=== PATIENT | male | born 1975 | race Caucasian/White ===

== ENCOUNTER 2019-09-23 00:39 | Emergency (ER) | payer BC, OTHER ==
[~2019-09-23] VITALS: Ht 190.5 cm; Wt 96.6 kg
[2019-09-23 00:58] VITALS: BP 141/86
[2019-09-23] MEDS ORDERED: CEPH-264 PO (01:19)
[2019-09-23] MEDS ORDERED: SULF1TAB24 PO (01:19)
--- NOTE | 2019-09-23 01:19 | PHYS DOC ---
Past Medical History Past Medical History: No Pertinent History Past Surgical History: Other Additional Past Surgical Histo: LEFT SHOULDER Alcohol Use: None Drug Use: None Adult General Chief Complaint Chief Complaint: INSECT BITE HPI HPI Patient is a 44 year old L presented to ER today for evaluation of a tender wound on left anterior thigh for two days. Patient felt like he was bitten by some type of insect 2 days ago. He noted a swollen lesion, he tried to squeezed it out and now it became swollen and tender. Patient denied any fever. All other ROS is negative unless otherwise noted in HPI Review of Systems Review of Systems See above Current Medications Current Medications Current Medications Medications (Trade) Dose Ordered Sig/Param Start Time Stop Time Status Last Admin Dose Admin Cephalexin HCl (Keflex) 1,000 mg 1X ONCE 09/23/19 01:30 09/23/19 01:31 Trimethoprim/ Sulfamethoxazole (Bactrim Ds) 1 tab 1X ONCE 09/23/19 01:30 09/23/19 01:31 Allergies Allergies Allergies Coded Allergies Type Severity Reaction Last Updated Verified No Known Drug Allergies 03/07/15 No Physical Exam Physical Exam See above Constitutional: Well developed, well nourished, no acute distress, non-toxic appearance. [] HENT: Normocephalic, atraumatic, bilateral external ears normal, oropharynx moist, no oral exudates, nose normal. [] Eyes: PERRLA, EOMI, conjunctiva normal, no discharge. [] Neck: Normal range of motion, no tenderness, supple, no stridor. [] Cardiovascular:Heart rate regular rhythm, no murmur [] Lungs & Thorax: Bilateral breath sounds clear to auscultation [] Abdomen: Bowel sounds normal, soft, no tenderness, no masses, no pulsatile masses. [] Skin: Warm, dry. There is tender skin lesion on anterior part of left distal thigh with surrounding erythema, not much induration. Back: No tenderness, no CVA tenderness. [] Extremities: No tenderness, no cyanosis, no clubbing, ROM intact, no edema. [] Neurologic: Alert and oriented X 3, normal motor function, normal sensory function, no focal deficits noted. [] Psychologic: Affect normal, judgement normal, mood normal. [] Current Patient Data Vital Signs Vital Signs Date Time Temp Pulse Resp B/P (MAP) Pulse Ox O2 Delivery O2 Flow Rate FiO2 09/23/19 00:58 97.8 62 12 141/86 (104) 93 Room Air 97.8 EKG EKG [] Radiology/Procedures Radiology/Procedures [] Course & Med Decision Making Course & Med Decision Making Pertinent Labs and Imaging studies reviewed. (See chart for details) [] Dragon Disclaimer Dragon Disclaimer This electronic medical record was generated, in whole or in part, using a voice recognition dictation system. Departure Departure Impression: Primary Impression: Insect bite Additional Impression: Cellulitis of left thigh Disposition: HOME, SELF-CARE Condition: STABLE Referrals: UNKNOWN PCP NAME (PCP) follow up with your doctor on Thursday for reevaluation. Patient Instructions: Cellulitis, Insect Bite Scripts Cephalexin (KEFLEX) 500 Mg Capsule 500 MG PO QID for 10 Days, #40 CAP Prov: BRE LAND DO 09/23/19 Sulfamethoxazole/Trimethoprim (BACTRIM DS TABLET) 1 Each Tablet 1 TAB PO BID for 10 Days, #20 TAB 0 Refills Prov: BRE LAND DO 09/23/19 Problem Qualifiers BRE LAND DO Sep 23, 2019 01:19
[2019-09-23] MEDS ORDERED: CEPHALEXIN 250 MG CAPSULE. PO ONE (01:30)
[2019-09-23] MEDS ORDERED: SMZ/TMP 800/160MG TABLET. PO ONE (01:30)
== END 2019-09-23 01:36 | disposition home or self-care (01) ==
LOC: ER 00:39
DX: S70.362A Insect bite (nonvenomous), left thigh, initial encounter (principal); L03.116 Cellulitis of left lower limb; Z98.890 Other specified postprocedural states; W57.XXXA Bitten or stung by nonvenomous insect and other nonvenomous arthropods, initial encounter; Y93.89 Activity, other specified; Y92.89 Other specified places as the place of occurrence of the external cause; Y99.8 Other external cause status
CPT/HCPCS: 99283